=== PATIENT | male | born 1945 | race Caucasian/White ===

== ENCOUNTER 2017-08-04 09:42 | Day surgery (SDC) | payer OTHER ==
[~2017-08-04] VITALS: Ht 177.8 cm; Wt 109.0 kg
[~2017-08-04 09:42] MED LIST: PRILOSEC; VITAMINS
[2017-08-04 10:13] LABS: HEMATOCRIT 43.7 % (38.0-50.0); MCH 27.6 PG (29.0-34.0); MCHC 31.8 G/DL (30.0-36.0); MCV 86.7 FL (86-99); MEAN PLAT.VOLUME 11.1 uM^3 (9.0-12.4); PLATELET COUNT 169 K/uL (156-360); RBC DIS.WIDTH-CV 13.8 % (11.8-14.6); RBC DIS.WIDTH-SD 43.8 % (39-53); RED BLOOD COUNT 5.04 M/uL (4.00-5.50); WHITE BLOOD COUNT 6.7 K/uL (4.1-10.2)
[2017-08-04] MEDS ORDERED: ZOLPIDEM TART12.5 MG PO (10:20)
[2017-08-04] MEDS ORDERED: PRILOSEC OTC20 MG PO (10:20)
[2017-08-04] MEDS ORDERED: METFORMIN HCL500 MG PO (10:20)
[2017-08-04] MEDS ORDERED: METOPROLOL SUCC50 MG PO (10:21)
[2017-08-04 10:24] LABS: CHLORIDE 109 mEq/L (99-109); POTASSIUM 4.9 mEq/L (3.7-5.4); SODIUM 142 mEq/L (136-147)
[2017-08-04 10:25] LABS: MAGNESIUM 2.4 mg/dL (1.3-2.7)
[2017-08-04 10:27] LABS: GLUCOSE 179 mg/dL (70-99)
[2017-08-04 10:28] LABS: ANION GAP 12 MEQ/L (2-14); TOTAL BILIRUBIN 0.5 mg/dL (0.0-1.0)
[2017-08-04 10:30] LABS: ALKALINE PHOSPHATASE 90 IU/L (3-129); GFR ESTIMATE (CALCULATED) > 59 mL/min/
[2017-08-04 10:31] LABS: UREA NITROGEN (BUN) 15 mg/dL (9-23)
[2017-08-04 10:33] LABS: CREATINE KINASE 118 IU/L (1-294); TOTAL CK 118 IU/L (1-294); TROP-I INTERPRETATION INDETERMINATE; TROPONIN-I 0.57 ng/mL (0.0-0.30)
[2017-08-04 10:39] LABS: CK-MB 4.1 ng/mL (0.0-4.9)
[2017-08-04] MEDS ORDERED: ZESTRIL5 MG PO (12:25)
[2017-08-04] MEDS ORDERED: COZAAR100 MG PO (12:25)
[2017-08-04 18:43] LABS: TROP-I INTERPRETATION POSITIVE; TROPONIN-I 1.16 ng/mL (0.0-0.30)
[2017-08-04 20:30] VITALS: BP 139/74
[2017-08-04 20:35] VITALS: BP 138/73
[2017-08-04 20:38] VITALS: BP 141/86
[2017-08-04 23:07] VITALS: BP 123/66
[2017-08-05 01:00] LABS: TROP-I INTERPRETATION POSITIVE
[2017-08-05 01:08] LABS: TROPONIN-I 3.22 ng/mL (0.0-0.30)
[2017-08-05 04:21] VITALS: BP 128/63
[2017-08-05 04:28] LABS: EOSINOPHIL (%) 3.7 % (0-5); EOSINOPHIL COUNT 0.2 K/uL (0-0.3); HEMATOCRIT 35.3 % (38.0-50.0); IMMATURE GRANULOCYTE (%) 0.7 % (0.0-0.7); INSTRUMENT ABS NEUTROPHIL CT 3.7 K/uL; LYMPHOCYTE COUNT 1.3 K/uL (1.0-2.8); MCH 27.6 PG (29.0-34.0); MCV 86.1 FL (86-99); MEAN PLAT.VOLUME 10.4 uM^3 (9.0-12.4); MONOCYTE (%) 7.3 % (3-12); MONOCYTE COUNT 0.4 K/uL (0-0.8); NEUTROPHIL (%) 64.7 % (45-76); NEUTROPHIL COUNT 3.7 K/uL (1.8-6.4); PLATELET COUNT 139 K/uL (156-360); RBC DIS.WIDTH-CV 13.9 % (11.8-14.6); RBC DIS.WIDTH-SD 43.5 % (39-53); WHITE BLOOD COUNT 5.7 K/uL (4.1-10.2)
[2017-08-05 04:29] LABS: CHLORIDE 110 mEq/L (99-109); SODIUM 143 mEq/L (136-147)
[2017-08-05 04:31] LABS: GLUCOSE 171 mg/dL (70-99)
[2017-08-05 04:33] LABS: ANION GAP 9 MEQ/L (2-14)
[2017-08-05 04:35] LABS: GFR ESTIMATE (CALCULATED) 58 mL/min/; TROP-I INTERPRETATION POSITIVE
[2017-08-05 04:36] LABS: UREA NITROGEN (BUN) 18 mg/dL (9-23)
[2017-08-05 04:40] LABS: POTASSIUM 3.8 mEq/L (3.7-5.4); TROPONIN-I 5.06 ng/mL (0.0-0.30)
[2017-08-05 07:09] VITALS: BP 116/59
[2017-08-05] MEDS ORDERED: ATORVASTATIN CA40 MG PO (07:51)
[2017-08-05] MEDS ORDERED: ASPIR-LOW81 MG PO (07:51)
[2017-08-05] MEDS ORDERED: BRILINTA90 MG PO (07:51)
[2017-08-05 10:52] VITALS: BP 142/88
== END 2017-08-05 11:57 | disposition home or self-care (01) ==
LOC: EME 09:42 → CATH 13:39 → 2SOUTH 16:45 → 4EAST 16:45 → ENRESERV 17:59 → 4EAST 20:20 → ENPENDDIS 08-05 → 4EAST 08-05 11:57
PROVIDERS: Emergency Medicine; Internal Medicine Cardiovascular Disease
DX: I25.10 Atherosclerotic heart disease of native coronary artery without angina pectoris (principal); I25.82 Chronic total occlusion of coronary artery; E11.9 Type 2 diabetes mellitus without complications; I10 Essential (primary) hypertension; E78.5 Hyperlipidemia, unspecified; Z87.891 Personal history of nicotine dependence; K21.9 Gastro-esophageal reflux disease without esophagitis; Z98.84 Bariatric surgery status; Z79.84 Long term (current) use of oral hypoglycemic drugs
CPT/HCPCS: 71020; 80048; 80053; 82550; 82553; 83735; 83880; 84484; 85025; 85027; 85347; 85610; 85730; 93005; 99281; 99284; C1725; C1769; C1874; C1887; G0378; J0360; J1644; J2250; J3010; J3246; J7030

== ENCOUNTER 2017-09-13 16:21 | Emergency (ER) | payer OTHER ==
[~2017-09-13] VITALS: Ht 177.8 cm; Wt 111.4 kg
[~2017-09-13 16:21] MED LIST changes: +ASPIR-LOW81 MG PO; +ATORVASTATIN CA40 MG PO; +BRILINTA90 MG PO; +COZAAR100 MG PO; +METFORMIN HCL500 MG PO; +METOPROLOL SUCC50 MG PO; +PRILOSEC OTC20 MG PO; +ZESTRIL5 MG PO; +ZOLPIDEM TART12.5 MG PO
[2017-09-13 17:38] LABS: HEMATOCRIT 38.2 % (38.0-50.0); MCH 28.1 PG (29.0-34.0); MCHC 32.5 G/DL (30.0-36.0); MCV 86.4 FL (86-99); MEAN PLAT.VOLUME 10.9 uM^3 (9.0-12.4); PLATELET COUNT 151 K/uL (156-360); RBC DIS.WIDTH-CV 14.2 % (11.8-14.6); RBC DIS.WIDTH-SD 44.8 % (39-53); RED BLOOD COUNT 4.42 M/uL (4.00-5.50); WHITE BLOOD COUNT 13.6 K/uL (4.1-10.2)
[2017-09-13 17:47] LABS: CHLORIDE 107 mEq/L (99-109); POTASSIUM 3.9 mEq/L (3.7-5.4); SODIUM 139 mEq/L (136-147)
[2017-09-13 17:49] LABS: GLUCOSE 208 mg/dL (70-99)
[2017-09-13 17:50] LABS: ANION GAP 10 MEQ/L (2-14)
[2017-09-13 17:53] LABS: GFR ESTIMATE (CALCULATED) 53 mL/min/
[2017-09-13 17:54] LABS: UREA NITROGEN (BUN) 13 mg/dL (9-23)
[2017-09-13 17:59] LABS: TROP-I INTERPRETATION NEGATIVE; TROPONIN-I 0.01 ng/mL (0.0-0.30)
[2017-09-13 19:40] LABS: TOTAL BILIRUBIN 0.9 mg/dL (0.0-1.0)
[2017-09-13 19:41] LABS: ALKALINE PHOSPHATASE 94 IU/L (3-129)
[2017-09-13 19:43] LABS: DIRECT BILIRUBIN 0.5 mg/dL (0.0-0.3)
[2017-09-13 19:44] LABS: LIPASE 23 U/L (1.0-51.0)
[2017-09-13 19:48] LABS: ADD MIUA? YES; BILIRUBIN NEGATIVE; BLOOD SMALL; COLOR YELLOW ((YELLOW)); GLUCOSE (STRIP) 50; KETONES 20; LEUKOCYTES TRACE; NITRITE NEGATIVE; PROTEIN (STRIP) 100; SPECIFIC GRAVITY 1.018 (1.000-1.030)
[2017-09-13 20:13] LABS: BACTERIA 1+ /HPF; EPITHELIAL CELLS NONE SEEN /HPF; MUCUS NONE SEEN /LPF; RED BLOOD CELLS 0-5 /HPF (0-5)
[2017-09-13] MEDS ORDERED: KEFLEX500 MG PO (21:42)
[2017-09-13 22:37] VITALS: BP 174/84
== END 2017-09-13 22:38 | disposition home or self-care (01) ==
LOC: EME 16:21
PROVIDERS: Nurse Practitioner Family
DX: N39.0 Urinary tract infection, site not specified (principal); R73.9 Hyperglycemia, unspecified; R06.02 Shortness of breath; K21.9 Gastro-esophageal reflux disease without esophagitis; I10 Essential (primary) hypertension; Z98.84 Bariatric surgery status; Z79.82 Long term (current) use of aspirin; Z87.891 Personal history of nicotine dependence
CPT/HCPCS: 71020; 74176; 80048; 80076; 81003; 83690; 84484; 85027; 87086; 93005; 99281; 99284; J3010; J7030